=== PATIENT | male | born 1990 | race Caucasian/White ===

== ENCOUNTER 2018-04-07 00:20 | Emergency (ER) | payer SELFPAY ==
[~2018-04-07] VITALS: Ht 172.7 cm; Wt 86.2 kg
[2018-04-07 00:27] VITALS: BP 124/98
--- NOTE | 2018-04-07 00:31 | NUR ---
PT WHEELCHAIRED TO BED 12
--- NOTE | 2018-04-07 00:38 | NUR ---
PATIENT PRESENTS TO ED WITH DIZZINESS. PT SKIN IS PINK/WARM/DRY; AAOX4 WITH EVEN AND STEADY GAIT; LUNGS CLEAR BL; HR EVEN AND REGULAR; PT DENIES ANY FEVER, CP, SOB, OR COUGH AT THIS TIME; PATIENT STATES PAIN OF 10/10 AT THIS TIME; VSS; PATIENT POSITIONED FOR COMFORT; HOB ELEVATED; BEDRAILS UP X2; BED DOWN. ER MD MADE AWARE OF PT STATUS.
[2018-04-07] MEDS ORDERED: NACL 0.9% 1,000 ML IV ONE (00:50)
[2018-04-07] MEDS ORDERED: KETOROLAC 30 MG/ML VIAL IVP ONE (00:50)
[2018-04-07 01:07] VITALS: BP 124/98
--- NOTE | 2018-04-07 01:07 | NUR ---
Patient discharged with v/s stable. Written and verbal after care instructions given and explained. Patient verbalized understanding. Ambulatory with steady gait. All questions addressed prior to discharge. Advised to follow up with PMD.
== END 2018-04-07 01:07 | disposition home or self-care (01) ==
LOC: MED 00:20
DX: M54.5 Low back pain (principal); R42 Dizziness and giddiness
CPT/HCPCS: 99281